=== PATIENT | male | born 1950 | race Caucasian/White ===

== ENCOUNTER 2023-07-01 09:46 | Inpatient (IN) | payer OTHER ==
[~2023-07-01] VITALS: Ht 165.1 cm; Wt 84.4 kg
[2023-07-01 11:22] LABS: Basophils # (auto) 0 10 ^3/uL (0-0.2); Eosinophils # (auto) 0.2 10 ^3/uL (0-0.8); Monocytes # (auto) 0.6 10 ^3/uL (0-1.3); Neutrophils # (auto) 3.2 10 ^3/uL (1.6-8.6); White Blood Cell 5.7 10^3/uL (4.4-10.8)
[2023-07-01 11:24] LABS: Basophils % (auto) 0.8 % (0.0-2.0); Eosinophils % (auto) 3.4 % (0.0-7.0); Hematocrit 39.6 % (41.0-53.0); Hemoglobin 12.9 g/dL (13.5-17.5); Lymphocytes # (auto) 1.7 10 ^3/uL (0.4-5.4); Lymphocytes % (auto) 29.2 % (10.0-50.0); Mean Corpuscular Hemoglobin 34.7 pg (28.0-32.0); Mean Corpuscular Hgb Conc. 32.6 g/dL (32.0-36.0); Mean Corpuscular Volume 106.2 fL (80.0-100.0); Monocytes % (auto) 10.6 % (0.0-12.0); Nucleated Red Blood Cells % 0.1 %; Red Blood Cells 3.73 10^6/uL (4.5-5.90)
[2023-07-01 11:43] LABS: Alanine Aminotransferase 21 U/L (7-40); Albumin 4.2 g/dL (3.2-4.8); Alkaline Phosphatase 41 U/L (46-116); Anion Gap 8 (5-15); Aspartate Aminotransferase 25 U/L (13-40); BUN/Creatinine Ratio 14.1 (10.0-20.0); Bilirubin, Total 0.4 mg/dL (0.2-1.0); Blood Urea Nitrogen 12 mg/dL (9-23); Calcium 9.4 mg/dL (8.5-10.1); Carbon Dioxide 24 mmol/L (20-30); Chloride 109 mmol/L (98-107); Glucose 108 mg/dL (74-106); Potassium 5.1 mmol/L (3.5-5.1); Sodium 141 mmol/L (136-145); Total Protein 5.9 g/dL (5.7-8.2)
[2023-07-01] MEDS: DexAMETHasone INJECTION 10 MG in D5W 5% 50 ML IV ONE (13:00)
[2023-07-01] MEDS ORDERED: MORPHINE SULFATE INJ 2 MG/ml SYRG IV PRN (16:30)
[2023-07-01] MEDS ORDERED: NITROGLYCERIN 0.4 MG SL TAB SL PRN (16:30)
[2023-07-01] MEDS ORDERED: ONDANSETRON HCL 4 MG/2 ML VIAL IV PRN (16:30)
[2023-07-01] MEDS ORDERED: ACETAMINOPHEN 325 MG TAB PO PRN (16:30)
[2023-07-01 22:53] VITALS: PULSE 71; RESP 20; O2SAT 97
[2023-07-01 23:13] VITALS: BP 127/67; PULSE 71; RESP 19; TEMP 97.5; TEMP 98.1; O2SAT 97
[2023-07-01] MEDS ORDERED: SIMV20TA20 PO (23:23)
[2023-07-01] MEDS ORDERED: HYDR-4072 (23:23)
[2023-07-01] MEDS ORDERED: GABA-1250 PO (23:23)
[2023-07-01] MEDS: SODIUM CHLORIDE 0.9% 1,000 ML IV SCH (23:30)
[2023-07-01] MEDS: HYDROcodone-ACET 5/325MG TAB PO PRN (23:59)
[2023-07-02] VITALS (7 sets, daily range): BP systolic 128–145; BP diastolic 49–77; PULSE 60–92; RESP 14–19; TEMP 97.5–98.2; O2SAT 94–98
[2023-07-02] MEDS: DexAMETHasone INJECTION 10 MG in D5W 5% 50 ML IV ONE (07:05)
[2023-07-02] MEDS: ENOXAPARIN SOD 40 MG/0.4 ML SYRINGE SC SCH (09:56)
[2023-07-03] VITALS (8 sets, daily range): BP systolic 118–127; BP diastolic 49–57; PULSE 60–80; RESP 11–22; TEMP 96.6–98; O2SAT 94–100
[2023-07-03 08:13] LABS: INR 1.05 (0.9-1.15); Partial Thromboplastin Time 26.5 SEC (24.5-34.5)
[2023-07-03] MEDS ORDERED: fentaNYL CITRATE 100 MCG/2 ML VL ONE ×2 (14:30→19:01)
[2023-07-03] MEDS ORDERED: PROPOFOL 10 MG/ML 20 ML IV ONE ×2 (15:02→19:29)
[2023-07-03] MEDS: SUCCINYLCHOLINE CHLORIDE 20 MG/ML 10ML VIAL IV ONE (15:05)
[2023-07-03] MEDS ORDERED: PHENYLEPHRINE HCL 10 MG/ML VL ONE (15:13)
[2023-07-03] MEDS ORDERED: LIDOCAINE 1% INJ PF 5ML AMP ONE (15:14)
[2023-07-03] MEDS ORDERED: ePHEDrine SULFATE 50 MG/ML AMP ONE (17:19)
[2023-07-03] MEDS ORDERED: ONDANSETRON HCL 4 MG/2 ML VIAL ONE (17:54)
[2023-07-03] MEDS: TRANEXAMIC ACID 20 ML ONE (18:09)
[2023-07-03] MEDS: LIDOCAINE W/ EPINEPHRINE 1% 20ML VIAL ONE (18:15)
[2023-07-03] MEDS ORDERED: MEPERIDINE HCL (25 MG/ML) 1ML VIAL ONE (20:44)
[2023-07-03] MEDS ORDERED: MORPHINE SULFATE INJ 2 MG/ml SYRG IV PRN (21:00)
[2023-07-03] MEDS ORDERED: ceFAZolin 1GM/50ML 50 ML IV SCH (21:00)
[2023-07-03] MEDS: MEPERIDINE HCL (25 MG/ML) 1ML VIAL IV PRN (21:25)
[2023-07-03] MEDS: HYDROmorphone HCL 2 MG/ML VL/or syr IV PRN (21:50)
[2023-07-03] MEDS: CYCLOBENZAPRINE HCL 10 MG TAB PO SCH (22:00)
[2023-07-03] MEDS: ceFAZolin 1GM/50ML 50 ML IV SCH (22:00)
[2023-07-03] MEDS: DOCUSATE SOD 100 MG CAP PO SCH (23:08)
[2023-07-03] MEDS: D5W/SOD CHLO 0.9% 1,000 ML IV SCH (23:17)
[2023-07-04] MEDS: ceFAZolin 1GM/50ML 50 ML IV SCH ×2 (01:36→09:48)
[2023-07-04] MEDS: HYDROcodone-ACET 10/325MG TAB PO PRN (03:40)
[2023-07-04 05:00] VITALS: BP 95/38; PULSE 83; RESP 18; TEMP 98.3; O2SAT 93
[2023-07-04] MEDS ORDERED: ceFAZolin 1GM/50ML 50 ML IV SCH (06:00)
[2023-07-04 08:00] VITALS: PULSE 80
[2023-07-04] MEDS: MORPHINE SULFATE INJ 2 MG/ml SYRG IV PRN (09:42)
[2023-07-04] MEDS: ONDANSETRON HCL 4 MG/2 ML VIAL IV ONE (14:07)
[2023-07-04 17:00] VITALS: BP 112/45; PULSE 77; RESP 19; TEMP 97.9; O2SAT 94
[2023-07-04 20:00] VITALS: PULSE 82; PULSE 95; RESP 16
[2023-07-04 21:00] VITALS: BP 168/70; PULSE 88; RESP 17; TEMP 99.1; O2SAT 92
[2023-07-05] VITALS (10 sets, daily range): BP systolic 134–174; BP diastolic 58–76; PULSE 79–102; RESP 16–19; TEMP 98.4–99.7; O2SAT 93–95
[2023-07-05] MEDS: ACETAMINOPHEN 325 MG TAB PO PRN (02:20)
[2023-07-05] MEDS: hydrALAZINE HCL 20 MG/ML VL IV PRN (16:57)
[2023-07-06] VITALS (8 sets, daily range): BP systolic 107–149; BP diastolic 40–71; PULSE 76–99; RESP 16–21; TEMP 98.1–98.6; O2SAT 93–97
[2023-07-06] MEDS: POLYETHYLENE GLYCOL 17 GM PWDR PO SCH (10:06)
[2023-07-06] MEDS: FLEET ENEMA(ADULT) 135 ML PR ONE (18:28)
[2023-07-07] VITALS (8 sets, daily range): BP systolic 105–158; BP diastolic 47–68; PULSE 69–102; RESP 16–20; TEMP 97.4–99.1; O2SAT 94–97
[2023-07-07] MEDS: ONDANSETRON HCL 4 MG/2 ML VIAL IV PRN (04:26)
== END 2023-07-07 20:00 | disposition home health service (06) | DRG 460 ==
LOC: ER 09:46 → TELE 16:31 → TELE-CENTR 23:02
PROVIDERS: ADMIT Internal Medicine; ATTEND Internal Medicine
PROC: 01N80ZZ Release Thoracic Nerve, Open Approach (ICD-10-PCS; 2023-07-03)
PROC: 00NX0ZZ Release Thoracic Spinal Cord, Open Approach (ICD-10-PCS; 2023-07-03)
PROC: 4A11X4G Monitoring of Peripheral Nervous Electrical Activity, Intraoperative, External Approach (ICD-10-PCS; 2023-07-03)
PROC: 0RG7071 Fusion of 2 to 7 Thoracic Vertebral Joints with Autologous Tissue Substitute, Posterior Approach, Posterior Column, Open Approach (ICD-10-PCS; principal; 2023-07-03 17:09)
DX: M48.04 Spinal stenosis, thoracic region (principal); M51.04 Intervertebral disc disorders with myelopathy, thoracic region; M51.06 Intervertebral disc disorders with myelopathy, lumbar region; M47.16 Other spondylosis with myelopathy, lumbar region; M48.061 Spinal stenosis, lumbar region without neurogenic claudication; M47.26 Other spondylosis with radiculopathy, lumbar region; M54.30 Sciatica, unspecified side; Z88.6 Allergy status to analgesic agent; G89.29 Other chronic pain; Z88.2 Allergy status to sulfonamides; Z88.7 Allergy status to serum and vaccine; Z88.8 Allergy status to other drugs, medicaments and biological substances; Z80.7 Family history of other malignant neoplasms of lymphoid, hematopoietic and related tissues
CPT/HCPCS: 36415; 71045; 72131; 72146; 72148; 80053; 83605; 84484; 85025; 85610; 85730; 86850; 86900; 86901; 93005; 93306; 97110; 97116; 97163; 97530; 99291; G0378; J0330; J1100; J2405; J2704; J7042; J7060